=== PATIENT | male | born 1980 ===

== ENCOUNTER 2021-12-17 15:48 | Emergency (ER) | payer OTHER, BC ==
[2021-12-17] MEDS ORDERED: fentaNYL 100 MCG/2 ML SDV IVPUSH STA (15:50)
[2021-12-17] MEDS ORDERED: fentaNYL 50 MCG/ML SDV IVPUSH ONE ×3 (15:50→19:14)
[2021-12-17] MEDS ORDERED: fentaNYL 50 MCG/ML SDV ONE (15:52)
[2021-12-17] MEDS ORDERED: Diphtheria,Pertussis(Acell),Tetanus Vaccine 0.5 ML Syringe IM ONE (15:54)
[2021-12-17] MEDS ORDERED: Lactated Ringers 1,000 ML IV STA (15:55)
[2021-12-17 16:38] LABS: BLOOD UREA NITROGEN,BUN 12 mg/dL (7.0-18.0); CARBON DIOXIDE,CO2 20.9 mmol/L (21.0-32.0); CHLORIDE,CL 105 mmol/L (98-107); GLUCOSE RANDOM 145 mg/dL (74-106); POTASSIUM,K 3.4 mmol/L (3.5-5.1); SODIUM,NA 139 mmol/L (136-148)
[2021-12-17 16:39] LABS: ESTIMATED GFR 86 mL/min (>60)
[2021-12-17] MEDS ORDERED: Iopamidol 755 MG/ML 500 ML Multipack Bottle IVPUSH STA (17:09)
[2021-12-17] MEDS ORDERED: Ketorolac 30 MG/ML SDV ONE (19:11)
[2021-12-17] MEDS ORDERED: Ketorolac 30 MG/ML SDV IVPUSH ONE (19:11)
[2021-12-17] MEDS: fentaNYL 50 MCG/ML SDV ONE ×2 (19:14→20:15)
== END 2021-12-17 19:17 ==
LOC: MW.ED 15:48
DX: S14.102A Unspecified injury at C2 level of cervical spinal cord, initial encounter (principal); S12.190A Other displaced fracture of second cervical vertebra, initial encounter for closed fracture; S01.01XA Laceration without foreign body of scalp, initial encounter; Z20.822 Contact with and (suspected) exposure to COVID-19; Z23 Encounter for immunization; V84.0XXA Driver of special agricultural vehicle injured in traffic accident, initial encounter
CPT/HCPCS: 36415; 70450; 70498; 71045; 71260; 72125; 72170; 73080; 74177; 80053; 80305; 80307; 81001; 82550; 83735; 84484; 85025; 85610; 86850; 86900; 86901; 87635; 90471; 90715; 93005; 96374; 96376; 99291; G0390; J3010; J7120; Q9967; 93010; 99292; U0002

== ENCOUNTER 2022-06-16 03:22 | Emergency (ER) | payer OTHER | END 2022-06-16 03:44 | disposition home or self-care (01) | LOC: MW.ED 03:22 | DX: K04.7 Periapical abscess without sinus (principal); K03.81 Cracked tooth; Z88.0 Allergy status to penicillin | CPT/HCPCS: 99282 ==